=== PATIENT | male | born 1960 | race Caucasian/White ===

== ENCOUNTER 2018-03-06 09:43 | Day surgery (SDC) | payer OTHER ==
[2018-03-06] MEDS ORDERED: LACTATED RINGERS 1,000 ML IV ONE ×2 (10:04→11:49)
[2018-03-06] MEDS ORDERED: LIDO GARGLE 30 ML BOTTLE ONE (11:08)
[2018-03-06] MEDS ORDERED: MIDAZOLAM 2 MG/2 ML VIAL IVP ONE (11:30)
[2018-03-06] MEDS ORDERED: fentaNYL 250 MCG/5 ML VIAL IVP ONE (11:30)
[2018-03-06 12:22] VITALS: BP 119/64
== END 2018-03-06 09:44 | disposition home or self-care (01) ==
LOC: SDS 09:43
PROVIDERS: ATTEND Internal Medicine Gastroenterology
PROC: 0DBN8ZX Excision of Sigmoid Colon, Via Natural or Artificial Opening Endoscopic, Diagnostic (ICD-10-PCS; principal; 2018-03-06 10:30)
PROC: 0DB48ZX Excision of Esophagogastric Junction, Via Natural or Artificial Opening Endoscopic, Diagnostic (ICD-10-PCS; 2018-03-06 10:30)
DX: K62.5 Hemorrhage of anus and rectum (principal); K57.30 Diverticulosis of large intestine without perforation or abscess without bleeding; K63.5 Polyp of colon; K22.10 Ulcer of esophagus without bleeding; K21.9 Gastro-esophageal reflux disease without esophagitis; F17.210 Nicotine dependence, cigarettes, uncomplicated
CPT/HCPCS: 43239; 45380; A9270; J3010; J7120

== ENCOUNTER 2019-04-27 15:05 | Outpatient (CLI) | payer OTHER ==
--- NOTE | 2019-04-28 11:56 | Ultrasound Report ---
Reason: LT AXILLARY PAIN Procedure Date: 04/27/2019 Accession Number: [id number] / [id number] Procedure: US - Axilla CPT Code: FULL RESULT: EXAM: LEFT UPPER EXTREMITY ULTRASOUND - LIMITED EXAM DATE: 04/27/2019 03:41 PM. CLINICAL HISTORY: Left axillary pain. The patient relates a history of axillary pain for 2 months. COMPARISON: None. TECHNIQUE: Real-time scanning was performed with static images obtained. FINDINGS: The left axillary region as indicated by the patient was interrogated by grayscale and limited color Doppler ultrasound. No collection or abnormal vascularity is seen. No masses identified. No abnormal appearing lymph nodes are seen. IMPRESSION: Normal exam. [facility]
== END 2019-04-27 15:06 | disposition home or self-care (01) ==
LOC: DI 15:05
PROVIDERS: ATTEND Internal Medicine
DX: R22.2 Localized swelling, mass and lump, trunk (principal)
CPT/HCPCS: 76882